=== PATIENT | male | born 1945 | race Caucasian/White ===

== ENCOUNTER → 2017-12-08 09:38 | Outpatient (CLI) | payer MEDICARE, SELFPAY ==
--- NOTE | 2017-12-08 | DI.RAD.S_ITS ---
PROCEDURE: XR CHEST 2V INDICATIONS: COUGH TECHNIQUE: 2 views of the chest were acquired. COMPARISON: None. FINDINGS: Surgical changes and devices: Surgical anchors involving the right humeral head. Lungs and pleura: No pleural effusions or pneumothorax. Lungs are clear. Mediastinum: Mediastinal contours are normal. Heart size is normal. Bones and chest wall: No suspicious bony abnormalities. Soft tissues appear unremarkable. Multilevel thoracic spine disc degeneration IMPRESSION: No source for cough identified. Dictated by: Orlando Panchal A Interpreted: Yuki Henley MD on 12/08/2017 at 9:52 Approved by: Yuki Henley MD, PhD on 12/08/2017 at 11:11
== END ==
PROVIDERS: Family Provider Family Medicine; PCP Family Medicine; Visit Provider Family Medicine
DX: R05 Cough (principal)
CPT/HCPCS: 71046

== ENCOUNTER → 2019-01-21 11:23 | Outpatient (CLI) | payer MEDICARE, OTHER, SELFPAY ==
--- NOTE | 2019-01-21 | DI.US.S_ITS ---
PROCEDURE: US THYROID INDICATIONS: OBESITY, UNSPECIFIED TECHNIQUE: Real-time scanning was performed of the thyroid gland, with image documentation. COMPARISON: None. FINDINGS: Right: Thyroid lobe measures 4.7 x 1.1 x 1.7 cm, and is homogeneous in echotexture. Left: Thyroid lobe measures 4.7 x 1.4 x 1.6 cm, and is homogenous in echotexture. Isthmus: 7 mm thick. No thyroid nodules are seen. IMPRESSION: Normal thyroid, without nodules seen. Dictated by: Magdy Silva M.D. on 01/24/2019 at 10:55 Approved by: Magdy Silva M.D. on 01/24/2019 at 10:56
== END ==
PROVIDERS: Family Provider Family Medicine; PCP Family Medicine; Visit Provider Family Medicine
DX: E66.9 Obesity, unspecified (principal)
CPT/HCPCS: 76536

== ENCOUNTER → 2021-08-13 10:19 | Outpatient (CLI) | payer MEDICARE, OTHER, SELFPAY ==
--- NOTE | 2021-08-13 | DI.RAD.S_ITS ---
PROCEDURE: XR CHEST 2V INDICATIONS: CHEST TECHNIQUE: 2 views of the chest were acquired. COMPARISON: [facility], CR, XR CHEST 2V, 12/08/2017, 9:18. FINDINGS: Surgical changes and devices: Anchors noted in the right humeral head. Lungs and pleura: Lungs are clear. No pleural effusions or pneumothorax. Mediastinum: Mediastinal contours are normal. Heart size is normal. Bones and chest wall: No suspicious bony abnormalities. Soft tissues appear unremarkable. IMPRESSION: No acute cardiopulmonary abnormality. Dictated by: Melo Olivier M.D. on 08/13/2021 at 10:48 Approved by: Melo Olivier M.D. on 08/13/2021 at 11:07
== END ==
PROVIDERS: Family Provider Family Medicine; PCP Family Medicine; Referring Provider Family Medicine; Visit Provider Family Medicine
DX: I48.0 Paroxysmal atrial fibrillation (principal)
CPT/HCPCS: 71046

== ENCOUNTER → 2022-05-29 09:24 | Outpatient (CLI) | payer MEDICARE, OTHER, SELFPAY ==
--- NOTE | 2022-05-29 | DI.NM.S_ITS ---
PROCEDURE: NM GIOVANNI PERF SPECT R&S PHARM Rest and pharmacological stress myocardial perfusion SPECT with gated imaging and ejection fraction RADIOPHARMACEUTICAL: 11.8 mCi Tc-99m tetrafosmin IV at rest and 24.5 mCi Tc-99m tetrafosmin IV at peak effect of pharmacological stress. [id number] was performed. INDICATIONS: Paroxysmal atrial fibrillation TECHNIQUE: Radiopharmaceutical was injected at peak stress test, and also at rest. SPECT images were obtained. SPECT myocardial perfusion images were displayed in short axis, horizontal long axis, and vertical long axis views. Gated images were reviewed using End[employer] software. COMPARISON: None. CARDIAC STRESS: A pharmacologic stress test was performed under the supervision of an attending staff, using an infusion of lexiscan 0.4mg IV X1. Hemodynamic data: There is normal blood pressure and heart rate response to pharmacologic stress. Symptoms: The patient denied anginal chest pain. Aminophylline: none EKG: Atrial fibrillation present during the entire study. No diagnostic changes of ischemia. Three brief runs of wide complex tachycardia (WCT), longest being 8.6seconds long. The WCT could be AF with aberrancy or ventricular tachycardia. FINDINGS: Raw data: There is good myocardial uptake of radiotracer. No significant motion artifacts. Left ventricle function: Gated images demonstrate normal left ventricular wall thickening. No segmental wall motion abnormalities. No transient ischemic dilation; TID is 0.96 (normal less than 1.3). Left ventricle resting end diastolic volume is 83 mL. Left ventricle stress ejection fraction is 51%; normal range is above 45%. Myocardial perfusion: No fixed or reversible perfusion defects on stress prone images. IMPRESSION: Low risk, normal pharmaceutical nuclear stress from inducible ischemia standpoint. Wide complex tachycardia present during the study. 1) No perfusion evidence of ischemia or infarction. 2) Normal left ventricular size, wall motion, and systolic function. 3) No angina during the study. 4) No diagnostic ST changes with lexiscan. 5) Three brief runs of wide complex tachycardia (WCT) after lexiscan injection, longest being 8.6seconds long. The WCT could be AF with aberrancy or ventricular tachycardia. 6) No prior nuclear stress test available for comparison. Dictated by: Tamara Mccabe MD on 05/30/2022 at 13:20 Approved by: Tamara Mccabe MD on 05/30/2022 at 13:24
[2022-05-29 10:49] LABS: COVID19 -Nasal RAPID Negative (Negative)
== END ==
PROVIDERS: Family Provider Family Medicine; PCP Family Medicine; Referring Provider Internal Medicine Cardiovascular Disease; Visit Provider Internal Medicine Cardiovascular Disease
DX: I48.0 Paroxysmal atrial fibrillation (principal); I48.3 Typical atrial flutter; Z20.822 Contact with and (suspected) exposure to COVID-19
CPT/HCPCS: 78452; 87635; 93017; A9502; J2785

== ENCOUNTER → 2023-04-25 11:56 | Outpatient (CLI) | payer MEDICARE, OTHER, SELFPAY ==
--- NOTE | 2023-04-25 | DI.MRI.S_ITS ---
PROCEDURE: MR BRAIN (IAC) WWO CON INDICATIONS: hearing loss TECHNIQUE: Noncontrast sagittal T1 spin echo, axial FLAIR, axial gradient echo, axial diffusion and ADC through the brain. Axial thin-slice 3D CISS, coronal TruFISP, axial T1 spin echo with fat saturation through the internal auditory canals. After the administration of contrast, thin slice axial and coronal T1 spin echo with fat saturation through the internal auditory canals, and axial and coronal and sagittal T1 spin echo with fat saturation through the brain. COMPARISON: [facility], MR, BRAIN (IAC) W AND WO CONTRAST, 03/12/2007, 17:13. FINDINGS: Image quality: Excellent. Cerebellopontine angles: No cerebellopontine angle masses. Inner ear structures appear normally formed. No suspicious enhancement in the internal auditory canal or along the course of the 7th cranial nerve. CSF spaces: Ventricles are normal in size and shape. No extra-axial fluid collections. Basal cisterns are patent. Brain: No intracranial masses or hemorrhage. Swanson/white matter interface is normal. Brainstem appears normal. Diffusion-weighted sequence is unremarkable without evidence of acute infarct. Normal intravascular flow voids are present. Skull and face: Calvarial marrow signal is normal. Orbits appear normal. Sinuses: Sinuses and mastoids are clear. IMPRESSION: Unremarkable MRI of the brain and internal auditory canals. No evidence of acoustic schwannoma Approved by: Castro Lam M.D. on 04/27/2023 at 14:57
== END ==
PROVIDERS: Family Provider Family Medicine; PCP Family Medicine; Referring Provider Otolaryngology; Visit Provider Otolaryngology
DX: H90.3 Sensorineural hearing loss, bilateral (principal)
CPT/HCPCS: 70553; A9579

== ENCOUNTER → 2024-01-26 10:10 | Outpatient (CLI) | payer MEDICARE, OTHER, SELFPAY ==
--- NOTE | 2024-01-26 10:12 | DI.RAD.S_ITS ---
PROCEDURE: XR CHEST 2V INDICATIONS: Other forms of dyspnea TECHNIQUE: 2 views of the chest were acquired. COMPARISON: [facility], CR, XR CHEST 2V, 08/13/2021, 10:32. FINDINGS: New moderate bilateral diffuse peribronchial thickening some of which may be related expiratory result with mild bibasilar subsegmental atelectasis, although bronchitis, viral infection, asthma or other process should be considered. New mildly prominent eduin, prominent pulmonary vessels and/or hilar lymph nodes. Moderate degenerate changes of the thoracic spine and shoulders unchanged. Mild reverse S-shaped scoliosis unchanged. No pneumothorax, no pleural effusion, no lobar consolidation. IMPRESSION: New moderate bilateral peribronchial thickening some of which may be related expiratory result with mild bibasilar subsegmental atelectasis, although bronchitis, viral infection, asthma or other process should be considered. New mildly prominent eduin, prominent pulmonary vessels and/or hilar lymph nodes. If symptoms persist or worsen, CT could be performed. Dictated by: Patrick Sewell M.D. on 01/26/2024 at 12:42 Approved by: Patrick Sewell M.D. on 01/26/2024 at 12:45
== END ==
PROVIDERS: Family Provider Family Medicine; PCP Family Medicine; Referring Provider Nurse Practitioner; Visit Provider Nurse Practitioner
DX: R06.09 Other forms of dyspnea (principal)
CPT/HCPCS: 71046

== ENCOUNTER → 2024-01-28 11:40 | Outpatient (CLI) | payer MEDICARE, OTHER, SELFPAY | PROVIDERS: Family Provider Family Medicine; PCP Family Medicine; Referring Provider Nurse Practitioner; Visit Provider Nurse Practitioner | DX: R06.09 Other forms of dyspnea (principal); R94.2 Abnormal results of pulmonary function studies | CPT/HCPCS: 94060; 94729 ==

== ENCOUNTER → 2024-10-28 10:26 | Outpatient (CLI) | payer MEDICARE, OTHER, SELFPAY ==
--- NOTE | 2024-10-28 10:28 | DI.RAD.S_ITS ---
PROCEDURE: XR LUMBAR SPINE 2-3V INDICATIONS: LUMBAR SPINE TECHNIQUE: 3 views of the lumbar spine were acquired. COMPARISON: None. FINDINGS: Bones: 5 [id number] vertebrae are present. Mild dextroscoliosis has its apex about the T12 vertebral body. Moderate to severe multilevel disc height loss throughout the lumbar spine with adjacent endplate sclerosis and multilevel anterior osteophytosis. Multilevel bilateral facet hypertrophy. No vertebral body compression fractures. No suspicious bony lesions. Soft tissues: Overlying bowel gas pattern is normal. No suspicious soft tissue calcifications. IMPRESSION: Degenerative change and mild dextroscoliosis of the lumbar spine without evidence of acute bony abnormality. Dictated by: Peter Gao M.D. on 10/28/2024 at 22:11 Approved by: Peter Gao M.D. on 10/28/2024 at 22:13
== END ==
LOC: RAD 10:27
PROVIDERS: Family Provider Family Medicine; PCP Family Medicine; Referring Provider Family Medicine; Visit Provider Family Medicine
DX: M47.816 Spondylosis without myelopathy or radiculopathy, lumbar region (principal); M54.50 Low back pain, unspecified; M41.9 Scoliosis, unspecified
CPT/HCPCS: 72100